=== PATIENT | female | born 1955 | race Caucasian/White ===

== ENCOUNTER 2022-04-24 10:12 | Emergency (ER) | payer BC ==
[~2022-04-24] VITALS: Ht 154.9 cm; Wt 79.4 kg
[2022-04-24] MEDS ORDERED: CHILDREN'S ASPI81 MG PO (10:22)
== END 2022-04-24 13:22 | disposition home or self-care (01) ==
LOC: ER 10:12
DX: L03.116 Cellulitis of left lower limb (principal)

== ENCOUNTER 2022-04-26 17:01 | Emergency (ER) | payer BC ==
[~2022-04-26] VITALS: Ht 167.6 cm; Wt 109.8 kg
[~2022-04-26 17:01] MED LIST: CHILDREN'S ASPI81 MG PO
== END 2022-04-27 12:46 | disposition home or self-care (01) ==
LOC: ER 17:01
DX: L03.116 Cellulitis of left lower limb (principal); M19.90 Unspecified osteoarthritis, unspecified site